=== PATIENT | male | born 1955 | race Caucasian/White ===

== ENCOUNTER 2018-10-07 16:11 | Emergency (ER) | payer OTHER ==
[~2018-10-07] VITALS: Ht 182.9 cm; Wt 106.1 kg
[~2018-10-07 16:11] MED LIST: FLONASE; HYDROXYCHLOROQ200 M1 PO; IBUPROFEN 600600 M1 PO; MULTIVITAMINS; NORCO 5-325 TA1 EACH PO
[2018-10-07] MEDS ORDERED: NEURONTIN600 MG PO (16:19)
[2018-10-07] MEDS ORDERED: CRESTOR5 MG PO (16:19)
[2018-10-07] MEDS ORDERED: METFORMIN HCL500 MG PO (16:19)
[2018-10-07] MEDS ORDERED: PREDNISONE 20 M20 MG PO (17:10)
[2018-10-07] MEDS ORDERED: BENADRYL25 MG PO (17:10)
[2018-10-07] MEDS ORDERED: PEPCID20 MG PO (17:10)
[2018-10-07] MEDS ORDERED: EPIPEN0.3 MG/0.1 IM (17:14)
[2018-10-07 17:48] VITALS: BP 154/55
== END 2018-10-07 17:49 | disposition home or self-care (01) ==
LOC: M.ERS 16:11
DX: R22.0 Localized swelling, mass and lump, head (principal); T78.1XXA Other adverse food reactions, not elsewhere classified, initial encounter; E11.9 Type 2 diabetes mellitus without complications; M32.9 Systemic lupus erythematosus, unspecified; Z88.0 Allergy status to penicillin; Z91.018 Allergy to other foods; X58.XXXA Exposure to other specified factors, initial encounter